=== PATIENT | male | born 1995 | race African-American/Black ===

== ENCOUNTER 2018-10-01 17:12 | Emergency (ER) | payer SELFPAY ==
[~2018-10-01] VITALS: Ht 172.7 cm; Wt 76.4 kg
[2018-10-01 17:18] VITALS: BP 158/72; Ht 172.7 cm; Wt 76.4 kg
[2018-10-01] MEDS ORDERED: CATAPRES0.1 MG PO (17:20)
[2018-10-01] MEDS ORDERED: FLAGYL500 MG PO (18:00)
[2018-10-01 19:08] LABS: APPEARANCE CLEAR (CLEAR); COLOR YELLOW (YELLOW)
[2018-10-01 19:09] LABS: BACTERIA FEW /hpf (NONE SEEN); BILIRUBIN NEGATIVE (NEGATIVE); GLUCOSE NEGATIVE (NEGATIVE); KETONE NEGATIVE (NEGATIVE); NITRITE NEGATIVE (NEGATIVE); PROTEIN NEGATIVE (NEGATIVE); RED CELLS - URINE RARE /hpf (0-5); UROBILINOGEN NORMAL (NORMAL); WHITE CELLS - URINE 0-5 /hpf (0-5)
== END 2018-10-01 18:59 | disposition home or self-care (01) ==
LOC: D.ER 17:12
PROVIDERS: Emergency Medicine
DX: Z20.2 Contact with and (suspected) exposure to infections with a predominantly sexual mode of transmission (principal); R36.9 Urethral discharge, unspecified; I10 Essential (primary) hypertension

== ENCOUNTER 2019-01-10 14:36 | Emergency (ER) | payer SELFPAY ==
[~2019-01-10] VITALS: Ht 172.7 cm; Wt 77.3 kg
[~2019-01-10 14:36] MED LIST: CATAPRES0.1 MG PO; FLAGYL500 MG PO
[2019-01-10 14:42] VITALS: BP 142/83; Ht 172.7 cm; Wt 77.3 kg
[2019-01-10 15:13] LABS: APPEARANCE CLEAR (CLEAR); BILIRUBIN NEGATIVE (NEGATIVE); COLOR STRAW (YELLOW); GLUCOSE NEGATIVE (NEGATIVE); KETONE NEGATIVE (NEGATIVE); NITRITE NEGATIVE (NEGATIVE); PROTEIN NEGATIVE (NEGATIVE); SPECIFIC GRAVITY 1.005 (1.005-1.020); UROBILINOGEN NORMAL (NORMAL)
[2019-01-10 15:15] LABS: BACTERIA FEW /hpf (NONE SEEN); RED CELLS - URINE 0-5 /hpf (0-5); WHITE CELLS - URINE 0-5 /hpf (0-5)
[2019-01-13 16:09] LABS: CHLAMYDIA TRACHOMATIS, NAA Positive (Negative)
== END 2019-01-10 15:42 | disposition home or self-care (01) ==
LOC: D.ER 14:36
PROVIDERS: Family Medicine
DX: A64 Unspecified sexually transmitted disease (principal)